=== PATIENT | female | born 1960 | race Caucasian/White ===

== ENCOUNTER 2021-01-03 11:14 | Emergency (ER) | payer BC, SELFPAY ==
--- NOTE | ~2021-01-03 | XR_ITS ---
EXAMINATION: XR chest 2V DATE: 01/03/2021 12:28 INDICATION: COPD presenting with 9 days of cough and chest discomfort TECHNIQUE: PA and lateral views of the chest were obtained. COMPARISON: Chest radiograph dated 04/16/2018 FINDINGS: Hyperexpansion of lungs with flattening of the diaphragm and increased retrosternal clear space consi stent with given history of COPD. Mild right apical pleural-parenchymal scarring. Unchanged relativel y dense nodular opacity projecting over the right upper lung zone most consistent with hypertrophic c hange at the anterior right first rib. No other airspace opacities, pulmonary edema, pleural effusion or pneumothorax. The cardiomediastinal silhouette is normal. Mild to moderate thoracic spondylosis. IMPRESSION: 1. Chronic hyperexpansion of the lungs consistent with given history of COPD. No acute cardiopulmonar y disease. Reviewed, dictated and finalized at location A. IMPRESSION: 1. Chronic hyperexpansion of the lungs consistent with given history of COPD. N o acute cardiopulmonary disease.
[2021-01-03 11:30] VITALS: BP 145/77; PULSE 110; RESP 16; TEMP 36.8; O2SAT 95
[2021-01-03] MEDS: ALBUTEROL SULFATE NEB 2.5 MG/3 ML INH INHALATION (11:49)
[2021-01-03] MEDS: IPRATROPIUM BR 0.02% INH SOLN 0.5 MG/2.5 ML VIAL INHALATION (11:49)
--- NOTE | 2021-01-03 12:37 | ED.URI ---
HPI - URI/Sore Throat General Chief Complaint: Upper Respiratory Infection Stated Complaint: congestion Time Seen by Provider: 01/03/21 12:15 Source: patient, RN notes reviewed and old records reviewed Mode of arrival: ambulatory Limitations: no limitations History of Present Illness HPI Narrative: 60 year old female accompanied by family member with complaints of sore throat which started about 9 days with some nasal congestion and drainage, headache and sinus pressure. Patient states for the past 2-3 days she has had dry cough and increased dyspnea. Has had noted wheezing and has been using her inhaler with not much improvement. Patient reports cough is worse at night, states history of COPD and continues to use tobacco daily.Patient voices chest tightness related to cough rates her discomfort as 5/10, denies any radiation of pain or any nausea or diaphoresis. MD elicited complaint: cough, sore throat, rhinorrhea, nasal congestion, sinus pain and other (dyspnea) Pertinent past history: COPD Related Data Home Medications Medication Instructions Recorded Confirmed Dulera 01/03/21 albuterol mcg INHALATION 01/03/21 montelukast mg 01/03/21 omeprazole 40 mg PO DAILY 01/03/21 01/03/21 Allergies Allergy/AdvReac Type Severity Reaction Status Date / Time No Known Allergies Allergy Unverified 09/02/18 16:26 Review of Systems Review of Systems: CONSTITUTIONAL: Denies known fevers, chills, or sweats. EYES: Denies visual changes, redness, or discharge. ENT: Positive for rhinorrhea, congestion, sore throat, no otalgia. CARDIOVASCULAR:Report chest tightness with cough, palpitations, or edema. RESPIRATORY:Harsh cough positive dyspnea with minimal exertion with wheezing GASTROINTESTINAL: Denies abdominal pain, nausea, vomiting, or diarrhea. GENITOURINARY: Denies dysuria or hematuria. SKIN: Denies rash or itching. MUSCULOSKELETAL: Denies back pain, joint pain, or myalgia. NEUROLOGIC: Positive headache sinus pressure, no numbness, or weakness. PSYCHIATRIC: Denies anxiety or depression. All systems reviewed & are unremarkable except as noted in HPI and below PMFSH Past Medical History Medical History (Updated 01/07/21 @ 11:05 by Hortensia Everett NP) COPD (chronic obstructive pulmonary disease) Elevated cholesterol GERD (gastroesophageal reflux disease) Pneumonia Surgical History Surgical History (Updated 01/07/21 @ 11:04 by Hortensia Everett NP) H/O: hysterectomy Social History Social History (Updated 01/07/21 @ 11:05 by Hortensia Everett NP) Smoking packs per day: 0.5 Smoking cigarettes per day: 10.0 Years smoked: 45 Smoking pack-years: 22.50 Smoking status: Current every day smoker Tobacco type: cigarettes Alcohol intake: current Alcohol use details: rare social Substance use: never Living arrangements: with family Gender identity (if verbalized by the patient): Female Comments At time of signature, agree with nursing past medical, surgical, social and family history. There is no relevant family history pertinent to the presenting complaint Exam Narrative: GENERAL: ill-appearing, well-nourished, and in no acute distress. HEAD: Normocephalic, atraumatic. EYES: PERRLA and EOMI. ENT: Nares red with clear rhinorrhea no epistaxis. Mucous membranes moist.TM's normal with good light reflex, throat red with no lesions or exudates tonsils enlarged, post nasal drainage noted. NECK: Supple.no lymphadenopathy CHEST: Decreased with scattered wheezing on auscultation. No acute.respiratory distress.SAO2 95% on room air HEART: Regular rate and rhythm. No murmur heard. Normal peripheral pulses. ABDOMEN: Soft, nontender, nondistended, normal active bowel sounds. EXTREMITIES: Normal range of motion. No edema. SKIN: Warm, dry, no rash. NEURO: No focal deficits. Alert and oriented x3. Course Vital Signs Vital signs: Vital Signs Temperature 36.8 C 01/03/21 11:30 Pulse Rate 110 H 01/03/21 11:30
--- NOTE | 2021-01-03 12:45 | PC.NURSE ---
Pt tolerated breathing treatment well, pt continues to have wheezing througout chest, pt is moving more are and coarse breath sounds noted in bases. Hortensia MACHINE INKER at bedside with pt currently.
== END 2021-01-03 13:08 | disposition home or self-care (01) ==
PROVIDERS: Emergency Provider Registered Nurse
DX: J01.90 Acute sinusitis, unspecified (principal); J44.1 Chronic obstructive pulmonary disease with (acute) exacerbation; K21.9 Gastro-esophageal reflux disease without esophagitis
CPT/HCPCS: 71046; 94640; 99213; G0463